=== PATIENT | female | born 2000 | race Caucasian/White ===

== ENCOUNTER 2023-08-22 08:50 | Emergency (ER) | payer SELFPAY ==
[~2023-08-22] VITALS: Ht 165.1 cm; Wt 106.6 kg
[2023-08-22 09:33] LABS: BASOPHILS ABSOLUTE AUTO 0.05 K/mm3 (0.00-0.23); BASOPHILS PERCENT AUTO 1 % (0-2); EOSINOPHILS ABSOLUTE AUTO 0.07 K/mm3 (0.00-0.68); EOSINOPHILS PERCENT AUTO 1 % (0-6); Hemoglobin 14.1 g/dL (11.5-16.0); IMMATURE GRAN ABSOLUTE AUTO 0.03 K/mm3 (0.00-0.10); IMMATURE GRAN PERCENT AUTO 0 % (0-1); LYMPHOCYTES PERCENT AUTO 15 % (21-46); MONOCYTES ABSOLUTE AUTO 0.71 K/mm3 (0.16-1.47); MONOCYTES PERCENT AUTO 7 % (4-13); Mean Corpuscular HGB 28.7 pg (26.0-34.0); Mean Corpuscular HGB Conc 34.4 g/dL (31.5-36.5); Mean Corpuscular Volume 83 fL (80-100); Mean Platelet Volume 9.4 fL (9.1-12.4); NEUTROPHILS PERCENT AUTO 76 % (41-73); Platelet Count 245 K/mm3 (150-400); RDW Coefficient Variation 12.5 % (11.7-14.2); RDW Standard Deviation 37.9 fL (35.1-46.3); Red Blood Cell Count 4.92 M/mm3 (3.80-5.20); White Blood Cell Count 10.36 K/mm3 (4.00-11.30)
[2023-08-22 10:26] LABS: Albumin, Blood 3.4 g/dL (3.4-5.0); Albumin/Globulin Ratio 0.9 (0.8-1.8); Bilirubin, Total 0.6 mg/dL (0.1-1.0); Bun/Creatinine Ratio 6.9 (12.0-20.0); Calcium, Blood 8.7 mg/dL (8.5-10.1); Creatinine, Blood 0.58 mg/dL (0.40-1.00); Globulin, Blood 3.6 g/dL (2.2-4.0); Potassium, Blood 3.7 mmol/L (3.5-5.5)
[2023-08-22 11:00] VITALS: BP 110/60
[2023-08-22] MEDS ORDERED: ONDA4ODT MM (11:37)
[2023-08-22] MEDS ORDERED: Pepcid20 MG PO (11:37)
== END 2023-08-22 11:52 | disposition home or self-care (01) ==
LOC: ER 08:50
PROVIDERS: Emergency Medicine
DX: O26.891 Other specified pregnancy related conditions, first trimester (principal); R10.31 Right lower quadrant pain; R10.12 Left upper quadrant pain; Z3A.09 9 weeks gestation of pregnancy; O99.611 Diseases of the digestive system complicating pregnancy, first trimester; K29.71 Gastritis, unspecified, with bleeding; O99.511 Diseases of the respiratory system complicating pregnancy, first trimester; J45.909 Unspecified asthma, uncomplicated
CPT/HCPCS: 76700; 76801; 80053; 83690; 84702; 85025; 99284-25

== ENCOUNTER 2023-08-26 15:08 | Emergency (ER) | payer OTHER ==
[~2023-08-26] VITALS: Ht 162.6 cm; Wt 88.5 kg
[~2023-08-26 15:08] MED LIST: ONDA4ODT MM; Pepcid20 MG PO
[2023-08-26 16:18] LABS: BASOPHILS ABSOLUTE AUTO 0.04 K/mm3 (0.00-0.23); BASOPHILS PERCENT AUTO 0 % (0-2); EOSINOPHILS ABSOLUTE AUTO 0.09 K/mm3 (0.00-0.68); EOSINOPHILS PERCENT AUTO 1 % (0-6); Hematocrit 41.4 % (33.0-51.0); IMMATURE GRAN ABSOLUTE AUTO 0.03 K/mm3 (0.00-0.10); IMMATURE GRAN PERCENT AUTO 0 % (0-1); LYMPHOCYTES ABSOLUTE AUTO 1.71 K/mm3 (0.84-5.20); LYMPHOCYTES PERCENT AUTO 19 % (21-46); MONOCYTES ABSOLUTE AUTO 0.64 K/mm3 (0.16-1.47); MONOCYTES PERCENT AUTO 7 % (4-13); Mean Corpuscular HGB 28.5 pg (26.0-34.0); Mean Corpuscular HGB Conc 33.8 g/dL (31.5-36.5); Mean Corpuscular Volume 84 fL (80-100); Mean Platelet Volume 9.4 fL (9.1-12.4); NEUTROPHILS ABSOLUTE AUTO 6.42 K/mm3 (1.96-9.15); NEUTROPHILS PERCENT AUTO 72 % (41-73); Platelet Count 267 K/mm3 (150-400); RDW Coefficient Variation 12.8 % (11.7-14.2); RDW Standard Deviation 39.5 fL (35.1-46.3); Red Blood Cell Count 4.91 M/mm3 (3.80-5.20); White Blood Cell Count 8.93 K/mm3 (4.00-11.30)
[2023-08-26 16:54] LABS: Source, Urine Clean Catch
[2023-08-26 17:02] LABS: Appearance, Urine Hazy (Clear); Bilirubin, Urine Neg (Neg); Blood, Urine Neg (Neg); Glucose Qualitative, Urine Neg (Neg); Ketones, Urine Neg (Neg); Leukocyte Esterase, Urine 2+ (Neg); Nitrite, Urine Neg (Neg); Protein, Urine Neg (Neg); Specific Gravity, Urine 1.015 (1.003-1.022); Urobilinogen, Urine NORM (Normal)
[2023-08-26 17:09] LABS: Color, Urine Pale Yellow (P-Yellow)
[2023-08-26 17:10] LABS: Bacteria Many /hpf; Mucus Light (0-Heavy); Red Blood Cells, Urine 0-2 /hpf (0-2); Squamous Epithelial Cells Mod /hpf (Few); White Blood Cells, Urine 50-100 /hpf (0-5)
[2023-08-26 17:11] LABS: Transitional Epithelial Cells Rare /hpf (0-Rare)
[2023-08-26] MEDS ORDERED: Macrobid 100 M100 MG PO (18:27)
[2023-08-26 19:21] VITALS: BP 121/73
== END 2023-08-26 19:22 | disposition home or self-care (01) ==
LOC: ER 15:08
PROVIDERS: Family Medicine
DX: O20.9 Hemorrhage in early pregnancy, unspecified (principal); Z3A.09 9 weeks gestation of pregnancy; O99.511 Diseases of the respiratory system complicating pregnancy, first trimester; J45.909 Unspecified asthma, uncomplicated; Z79.899 Other long term (current) drug therapy
CPT/HCPCS: 76801; 81001; 84702; 85025; 86900; 86901; 87077; 87086; 87186; 90471; 96372; 99284-25; A9270; J2791

== ENCOUNTER 2023-09-25 10:44 | Emergency (ER) | payer OTHER ==
[~2023-09-25] VITALS: Ht 165.1 cm; Wt 111.1 kg
[~2023-09-25 10:44] MED LIST changes: +Macrobid 100 M100 MG PO
[2023-09-25 13:10] LABS: Source, Urine Clean Catch
[2023-09-25 13:13] LABS: Appearance, Urine Clear (Clear); Bilirubin, Urine Neg (Neg); Blood, Urine Neg (Neg); Color, Urine Yellow (P-Yellow); Glucose Qualitative, Urine Neg (Neg); Ketones, Urine 3+ (Neg); Leukocyte Esterase, Urine Neg (Neg); Nitrite, Urine Neg (Neg); Protein, Urine Neg (Neg); Specific Gravity, Urine 1.015 (1.003-1.022); Urobilinogen, Urine NORM (Normal)
[2023-09-25] MEDS ORDERED: ACETAMINOPHEN500 MG PO (14:13)
[2023-09-25 14:30] VITALS: BP 110/69
== END 2023-09-25 14:55 | disposition home or self-care (01) ==
LOC: ER 10:44
PROVIDERS: Emergency Medicine
DX: O36.5920 Maternal care for other known or suspected poor fetal growth, second trimester, not applicable or unspecified (principal); R10.13 Epigastric pain; Z3A.14 14 weeks gestation of pregnancy; Z79.899 Other long term (current) drug therapy
CPT/HCPCS: 76775; 76801; 76817; 81003; 99284-25; A9270

== ENCOUNTER 2024-02-25 10:49 | Observation (INO) | payer OTHER ==
[~2024-02-25] VITALS: Ht 162.6 cm; Wt 134.0 kg
[2024-02-25] VITALS (24 sets, daily range): BP systolic 59–136; BP diastolic 34–77
[~2024-02-25 10:49] MED LIST changes: +ACETAMINOPHEN500 MG PO; +CEPHALEXIN500 M1 PO; +ONDA4 PO
--- NOTE | 2024-02-25 11:12 | NUR ---
PATIENT STATES FACE WAS SWOLLEN WHEN SHE WOKE UP AND INCREASE SWELLING IN LEGS AND FACE, BILATERAL SWELLING 1+ IN LEGS AT THIS TIME, STATES NO NAUSEA AT THIS MOMENT BUT VOMITED X2 SINCE 0200 ONLY BILE SHE STATES, STATES SEES SPARKLES IN HERE EYES WHEN VOMITING AND STANDING, STATES HAD VARIATION OF HIGH AND LOW HEART RATE ON PATIENT AND HAD HEART MONITOR IN PLACE FOR 2 WEEKS IN JANUARY HAS NOT HEARD ANY RESULTS FOR THAT YET PER PATIENT
[2024-02-25] MEDS ORDERED: Acetaminophen 500 MG Tab PO PRN (11:50)
[2024-02-25 11:54] LABS: BASOPHILS ABSOLUTE AUTO 0.02 K/mm3 (0.00-0.23); BASOPHILS PERCENT AUTO 0 % (0-2); EOSINOPHILS ABSOLUTE AUTO 0.04 K/mm3 (0.00-0.68); EOSINOPHILS PERCENT AUTO 0 % (0-6); Hemoglobin 12.2 g/dL (11.5-16.0); IMMATURE GRAN ABSOLUTE AUTO 0.08 K/mm3 (0.00-0.10); IMMATURE GRAN PERCENT AUTO 1 % (0-1); LYMPHOCYTES ABSOLUTE AUTO 1.83 K/mm3 (0.84-5.20); LYMPHOCYTES PERCENT AUTO 16 % (21-46); MONOCYTES ABSOLUTE AUTO 0.75 K/mm3 (0.16-1.47); MONOCYTES PERCENT AUTO 6 % (4-13); Mean Corpuscular HGB 28.8 pg (26.0-34.0); Mean Corpuscular HGB Conc 33.9 g/dL (31.5-36.5); Mean Corpuscular Volume 85 fL (80-100); Mean Platelet Volume 9.7 fL (9.1-12.4); NEUTROPHILS ABSOLUTE AUTO 9.08 K/mm3 (1.96-9.15); NEUTROPHILS PERCENT AUTO 77 % (41-73); Platelet Count 247 K/mm3 (150-400); RDW Coefficient Variation 12.9 % (11.7-14.2); RDW Standard Deviation 39.4 fL (35.1-46.3); Red Blood Cell Count 4.24 M/mm3 (3.80-5.20)
[2024-02-25 12:27] LABS: Creatinine, Urine Random 64.3 mg/dL (27.00-270.00); Protein, Urine Random 15.2 mg/dL (0.0-11.9); Protein/Creat Ratio, Ur Random 0.2
[2024-02-25 12:28] LABS: Albumin, Blood 2.6 g/dL (3.4-5.0); Albumin/Globulin Ratio 0.7 (0.8-1.8); Bilirubin, Total 0.3 mg/dL (0.1-1.0); Bun/Creatinine Ratio 9.5 (12.0-20.0); Calcium, Blood 8.7 mg/dL (8.5-10.1); Creatinine, Blood 0.53 mg/dL (0.40-1.00); Globulin, Blood 3.6 g/dL (2.2-4.0); Potassium, Blood 3.5 mmol/L (3.5-5.5); Total Protein, Blood 6.2 g/dL (6.4-8.2)
[2024-02-25] MEDS ORDERED: Labetalol HCL 100 MG TAB PO SCH (21:00)
[2024-02-25] MEDS ORDERED: Sotalol HCl 80 MG Tab PO SCH (21:00)
[2024-02-26 05:27] VITALS: BP 95/52
[2024-02-26 08:41] VITALS: BP 105/56
--- NOTE | 2024-02-26 10:10 | NUR ---
REPORT TAKEN FROM AN RN
--- NOTE | 2024-02-26 11:25 | NUR ---
PATIENT NEVER CALLED REPORT BACK TO AN RN
[2024-02-26 11:43] VITALS: BP 108/64
[2024-02-26 14:00] VITALS: BP 96/53
--- NOTE | 2024-02-26 14:06 | NUR ---
DR KEANE UPDATED OF NORMAL ECHO, DR KEANE WAS GOINT TO CALL DARRION ANDREW FOR LABETALOL 100 BID WHICH SHE WILL CONTINUE TAKING, INSTRUCTIONS GIVEN PATIENT WILL COME TO ER IF EPISODE HAPPENS AGAIN, D/C HOME WITH INSTRUCTIONS
== END 2024-02-26 14:45 | disposition home or self-care (01) ==
LOC: OBS 10:49 → BC 10:57 → OBS 13:33 → BC 13:33
PROVIDERS: ADMIT Obstetrics & Gynecology
DX: O26.53 Maternal hypotension syndrome, third trimester (principal); O99.891 Other specified diseases and conditions complicating pregnancy; R00.1 Bradycardia, unspecified; R55 Syncope and collapse; O99.513 Diseases of the respiratory system complicating pregnancy, third trimester; J45.909 Unspecified asthma, uncomplicated; O99.413 Diseases of the circulatory system complicating pregnancy, third trimester; I47.10 Supraventricular tachycardia, unspecified; Z3A.36 36 weeks gestation of pregnancy; Z87.891 Personal history of nicotine dependence
CPT/HCPCS: 36415; 80053; 81003; 82570; 84156; 85025; 93005; 93010; 93306; A9270